=== PATIENT | male | born 1945 | race Caucasian/White ===

== ENCOUNTER 2018-09-23 12:32 | Observation (INO) | payer MEDICARE, BC ==
[2018-09-22 12:41] VITALS: BP 152/100
[2018-09-22 13:06] LABS: BASOPHILS # (AUTO) 0.03 x10^3/uL (0-0.1); BASOPHILS % (AUTO) 1 % (0-1); EOSINOPHILS # (AUTO) 0.11 x10^3/uL (0-0.4); EOSINOPHILS % (AUTO) 2 % (1-7); LYMPHOCYTES # (AUTO) 1.53 x10^3/uL (1-3.4); LYMPHOCYTES % (AUTO) 22 % (22-44); MD NO; MEAN CORPUSCULAR HEMOGLOBIN 33.4 pg (27.5-34.5); MEAN CORPUSCULAR HGB CONC 34.1 g/dL (33.2-36.2); MEAN CORPUSCULAR VOLUME 98.1 fL (81-97); MEAN PLATELET VOLUME 10.6 fL (7.4-10.4); MONOCYTES # (AUTO) 0.53 x10^3/uL (0.2-0.8); MONOCYTES % (AUTO) 8 % (2-9); NEUTROPHILS # (AUTO) 4.63 x10^3/uL (1.8-6.8); NEUTROPHILS % (AUTO) 68 % (42-75); PLATELET COUNT 163 x10^3/uL (130-400); RED CELL DISTRIBUTION WIDTH 14.8 % (9.4-14.8)
[2018-09-22 13:15] LABS: ANION GAP 4 mmol/L (5-15); CALCIUM 9.4 mg/dL (8.5-10.1); CHLORIDE 108 mmol/L (98-107); CREATININE 1.01 mg/dL (0.7-1.3)
[~2018-09-23] VITALS: Ht 182.9 cm; Wt 146.3 kg
[~2018-09-23 12:32] MED LIST: ASPI-614 PO; MULT-658 PO
[2018-09-23] MEDS ORDERED: lutein PO (13:13)
[2018-09-23] MEDS ORDERED: cranberry PO (13:13)
[2018-09-23] MEDS ORDERED: FENTANYL PF 100 MCG/2ML ONE (13:52)
[2018-09-23] MEDS ORDERED: LIDOCAINE 2%, 20ML ONE (13:53)
[2018-09-23] MEDS ORDERED: MIDAZOLAM 1 MG/ML, 5ML ONE (13:53)
[2018-09-23] MEDS ORDERED: VANCOMYCIN 500 MG ONE (13:53)
[2018-09-23] MEDS ORDERED: VANCOMYCIN PMX 1GM/200ML 200 ML ONE (13:53)
[2018-09-23] MEDS ORDERED: SODIUM CHLORIDE 0.9% 1,000 ML IV SCH (14:00)
[2018-09-23] MEDS ORDERED: VANCOMYCIN PMX 1GM/200ML 200 ML IVPB ONE ×2 (14:00→15:30)
[2018-09-23] MEDS ORDERED: HYDROcodone/APAP 5/325 TABLET PO PRN (15:00)
[2018-09-23] MEDS ORDERED: HOLD MEDICATION MC PRN (15:00)
[2018-09-23 16:01] VITALS: BP 145/92
[2018-09-23 20:13] VITALS: BP 152/88
[2018-09-23] MEDS: SODIUM CHLORIDE FLUSH 10ML SYR IVF SCH (21:00)
[2018-09-24 01:00] VITALS: BP 180/128
[2018-09-24 01:05] VITALS: BP_SYST 169; BP_SYST 180; BP_DIAS 122; BP_DIAS 125
[2018-09-24] MEDS ORDERED: VANCOMYCIN PMX 1GM/200ML 200 ML IVPB ONE (02:15)
[2018-09-24 02:44] VITALS: BP 155/89
[2018-09-24 07:37] VITALS: BP 152/94
[2018-09-24] MEDS: SODIUM CHLORIDE FLUSH 10ML SYR IVF SCH (08:14)
[2018-09-24] MEDS ORDERED: ASPIRIN 81 MG TABLET CHEW PO SCH (09:00)
[2018-09-24] MEDS ORDERED: MULTIVITAMIN 1 TABLET PO SCH (09:00)
== END 2018-09-24 10:20 | disposition home or self-care (01) ==
LOC: CACL 12:32 → ORIP 14:59 → 5SO 15:29 → DCLOUNGE 09-24 10:05
PROVIDERS: ADMIT Internal Medicine Cardiovascular Disease; ATTEND Internal Medicine Cardiovascular Disease
DX: I48.1 Persistent atrial fibrillation (principal); R00.1 Bradycardia, unspecified; G47.30 Sleep apnea, unspecified; E78.5 Hyperlipidemia, unspecified; I48.92 Unspecified atrial flutter; I47.1 Supraventricular tachycardia; Z79.82 Long term (current) use of aspirin; Z79.899 Other long term (current) drug therapy
CPT/HCPCS: 33208; 36415; 71045; 71046; 80048; 85025; 93005; 96365; 99156; 99157; C1779; C1785; C1892; G0378; J2250; J3010; J3370; J3490

== ENCOUNTER → 2018-09-28 | Outpatient (CLI) | payer MEDICARE, BC ==
[~2018-09-28] MED LIST changes: +cranberry PO; +lutein PO
== END | disposition home or self-care (01) ==
LOC: CVU 12:12
PROVIDERS: ATTEND Internal Medicine Cardiovascular Disease
DX: I08.3 Combined rheumatic disorders of mitral, aortic and tricuspid valves (principal); Z95.0 Presence of cardiac pacemaker
CPT/HCPCS: 93306

== ENCOUNTER 2019-05-16 02:42 | Inpatient (IN) | payer MEDICARE, BC ==
[~2019-05-16] VITALS: Ht 182.9 cm; Wt 148.2 kg
--- NOTE | 2019-05-16 03:00 | NUR ---
Patient wheeled back in wheelchair with lion hunter. Patient reports history of bronchitis. Patient has a dry nonproductive cough, RN does not appreciate any wheezing but patient's breaths are very diminished. Unable to ausculate from posterior as patient difficulty sitting up without assistance from gurney. Anteriorly auscultation ability reduced by adipose tissue due to patient's morbid obesity. Patient is alert, oriented, answers questions clearly concisely and in full sentences. Skin is warm, pink and dry. Awaiting assessment by provider.
[2019-05-16 03:20] LABS: BASOPHILS # (AUTO) 0.01 x10^3/uL (0-0.1); BASOPHILS % (AUTO) 0 % (0-1); EOSINOPHILS # (AUTO) 0.06 x10^3/uL (0-0.4); EOSINOPHILS % (AUTO) 1 % (1-7); LYMPHOCYTES # (AUTO) 0.29 x10^3/uL (1-3.4); LYMPHOCYTES % (AUTO) 3 % (22-44); MD NO; MEAN CORPUSCULAR HEMOGLOBIN 33.7 pg (27.5-34.5); MEAN CORPUSCULAR HGB CONC 33.7 g/dL (33.2-36.2); MEAN PLATELET VOLUME 10.2 fL (7.4-10.4); MONOCYTES # (AUTO) 0.32 x10^3/uL (0.2-0.8); MONOCYTES % (AUTO) 4 % (2-9); NEUTROPHILS # (AUTO) 8.33 x10^3/uL (1.8-6.8); NEUTROPHILS % (AUTO) 93 % (42-75); PLATELET COUNT 150 x10^3/uL (130-400); RED BLOOD COUNT 4.38 x10^6/uL (4.38-5.82); RED CELL DISTRIBUTION WIDTH 14.5 % (9.4-14.8)
[2019-05-16 03:32] LABS: ALANINE AMINOTRANSFERASE 40 U/L (12-78); ALBUMIN 3.6 g/dL (3.4-5.0); ANION GAP 7 mmol/L (5-15); CALCIUM 8.4 mg/dL (8.5-10.1); CHLORIDE 108 mmol/L (98-107); CREATININE 1.02 mg/dL (0.7-1.3)
[2019-05-16 03:37] LABS: ALKALINE PHOSPHATASE 89 U/L (45-117); BILIRUBIN,TOTAL 1.1 mg/dL (0.2-1.0); TOTAL PROTEIN 7.4 g/dL (6.4-8.2)
[2019-05-16] MEDS ORDERED: HEPARIN 5,000 UNITS/ML, 1ML ONE ×2 (03:59→10:11)
[2019-05-16] MEDS ORDERED: HEPARIN 25,000 UNITS/500ML PMX 500 ML ONE (03:59)
[2019-05-16] MEDS ORDERED: FUROSEMIDE 40 MG/4 ML ONE (03:59)
[2019-05-16] MEDS ORDERED: ASPIRIN 325 MG TABLET ONE (03:59)
[2019-05-16] MEDS ORDERED: FUROSEMIDE 40 MG/4 ML IV ONE (04:00)
[2019-05-16] MEDS ORDERED: HEPARIN 25,000 UNITS/500ML PMX 500 ML IV PRN ×2 (04:00→10:09)
[2019-05-16] MEDS ORDERED: HEPARIN 5,000 UNITS/ML, 1ML IV ONE (04:00)
[2019-05-16] MEDS ORDERED: ASPIRIN 325 MG TABLET PO ONE (04:00)
[2019-05-16] MEDS ORDERED: NITROGLYCERIN OINT 2%, 1GM TP ONE ×2 (04:24→04:30)
[2019-05-16] MEDS ORDERED: ONDANSETRON 2MG/ML, 2ML ONE (04:24)
[2019-05-16] MEDS ORDERED: ONDANSETRON 2MG/ML, 2ML IVPush ONE (04:30)
--- NOTE | 2019-05-16 04:56 | NUR ---
Provider informed of critical troponin (see critical labs flowsheet) Received orders for additional medications. RN to the bedside. Provider to the bedside soon after, educated patient on lab findings, radiology findings and plan of care to include antithrombotics with aspirin (administered immediately) and heparin. Patient also requiring iv diuretics and antinausea medications. (See electronic medicine administration record for details) IV started per protocol and double checked with second RN. Heparin bolus and heparin rate also confirmed with pharmacist Zach. Patient and spouse at bedside agreeable to plan of care. Patient denies chest pain, no diaphoresis and patient's electrocardiogram has been within normal limits. RN then gave report Jerica. Patient transferred into hospital bed for telemetry hold. patient denies further needs.
[2019-05-16] MEDS ORDERED: ACETAMINOPHEN 325 MG TABLET PO PRN (05:30)
[2019-05-16] MEDS ORDERED: ONDANSETRON ODT 4 MG PO PRN (05:30)
[2019-05-16] MEDS ORDERED: OXYcodone IR 5MG TABLET PO PRN (05:30)
[2019-05-16] MEDS ORDERED: hydrALAzine 20 MG/ML, 1ML IVPush PRN (05:30)
[2019-05-16] MEDS ORDERED: POLYETHYLENE GLYCOL 17 GM PACKET PO PRN (05:30)
[2019-05-16] MEDS ORDERED: BISACODYL 10 MG SUPP PR PRN (05:30)
[2019-05-16] MEDS ORDERED: DOCUSATE 100 MG CAPSULE PO PRN (05:30)
[2019-05-16] MEDS ORDERED: PROMETHAZINE 25 MG/ML, 1ML IM PRN (05:30)
[2019-05-16] MEDS ORDERED: morphine SULFATE 10 MG/ML, 1ML IVPush PRN (05:30)
[2019-05-16] MEDS ORDERED: ONDANSETRON 2MG/ML, 2ML IVPush PRN (05:30)
[2019-05-16] MEDS ORDERED: NITROGLYCERIN 0.4 MG BOTTLE (25 TABS) SL PRN ×2 (06:00→16:30)
[2019-05-16 06:18] LABS: FREE T4 (FREE THYROXINE) 0.87 ng/dL (0.76-1.46)
[2019-05-16] MEDS ORDERED: PANTOPRAZOLE 40 MG IV ONE (06:43)
[2019-05-16] MEDS: PANTOPRAZOLE 40 MG IV IVPush SCH ×2 (06:47→17:38)
--- NOTE | 2019-05-16 07:10 | NUR ---
Received bedside report from Iva Krishna RN. All questions answered. Assuming care of pt at this time. Pt resting on hospital bed with PIV fluids and mediations infusing per EMAR. Pt's at bedside. Pt denies SOB at this time with or without exertion. NADN. No other needs expressed at this time. Pt aware of NPO status at this time.
[2019-05-16] MEDS ORDERED: AMLODIPINE 5 MG TABLET ONE (08:15)
[2019-05-16] MEDS ORDERED: ACETAMINOPHEN 325 MG TABLET ONE (08:26)
--- NOTE | 2019-05-16 08:35 | NUR ---
Obtained morning vital signs per unit protocol per Admit MD order. Printed cardiac rhythm documentation and attached to pt's paper chart. Performed and charted physical assessment. Provided pt medication per EMAR and VS and per EMAR. PIV medication infusing per EMAR. Pending next labs. Provided pt IS and education with teach back method. Pt stated verbal understanding and showed demonstration of IS use. NADN. No needs expressed at this time. Call light within reach. Bedrails up x 3. Urinal provided at bedside. Pt denies pain at this time.
[2019-05-16] MEDS ORDERED: AMLODIPINE 5 MG TABLET PO SCH (09:00)
[2019-05-16] MEDS ORDERED: ATOR80TA PO (09:12)
[2019-05-16] MEDS ORDERED: ASPI-650 PO (09:12)
--- NOTE | 2019-05-16 10:28 | NUR ---
LATE NOTE ENTRY DUE TO PT CARE FOR 1007: Called pharmacy and verified heparin protocol for pt. Per pharmacy pt's adjusted dose weight is 107 kg. Per pt's Anti-Xa at 0900, and per protocol and verification with pharmacy and FABIOLA Reynolds, rebolused pt with 4,000 Units of heparin and increased gtt rate from 1,000 units/hour to 1,200 units/hour. NADN. No needs expressed at this time.
[2019-05-16] MEDS ORDERED: ASPI-614 PO (10:36)
[2019-05-16] MEDS ORDERED: Lutein (10:36)
[2019-05-16] MEDS ORDERED: Cranberry (10:36)
[2019-05-16] MEDS ORDERED: multivitamin (10:36)
--- NOTE | 2019-05-16 11:02 | NUR ---
BREAK RN: DR CONTI TO BEDSIDE FROM CARDIOLOGY. PLAN IS FOR AN ECHO TODAY AND CATH TOMORROW. FAMILY AT BEDSIDE. MD ADDRESSED ALL PT AND FAMILY QUESTIONS AT THIS TIME. CALL LIGHT WITHIN REACH. WILL CONTINUE TO MONITOR.
--- NOTE | 2019-05-16 13:55 | NUR ---
Pt resting with eyes closed on hospital bed. Pt has unlabored respirations with even chest rise and fall. NADN. No needs expressed. Spouse at bedside. Bedrails up x 3, call light and urinal within reach.
--- NOTE | 2019-05-16 15:11 | NUR ---
Provided report to JENNIFER Resendiz. All questions answered. Pt ready to transfer from ED to floor. NADN. No needs expressed.
[2019-05-16 15:46] VITALS: BP 123/76
--- NOTE | 2019-05-16 15:50 | NUR ---
Pt transfered to floor from ED and left with all personal belongings. NADN. No needs expressed.
[2019-05-16] MEDS: HEPARIN 5,000 UNITS/ML, 1ML IV PRN ×2 (16:36→23:28)
[2019-05-16] MEDS: METOPROLOL TARTRATE 25 MG TAB PO SCH (17:38)
[2019-05-16] MEDS: FUROSEMIDE 20 MG/2 ML IV SCH (17:38)
[2019-05-16 19:29] VITALS: BP 100/66
[2019-05-16] MEDS: ATORVASTATIN 40 MG TABLET PO SCH (19:58)
[2019-05-17 01:23] VITALS: BP 125/82
[2019-05-17 05:56] VITALS: BP 110/67
[2019-05-17] MEDS: ASPIRIN 81 MG TABLET EC PO SCH (05:57)
[2019-05-17] MEDS: METOPROLOL TARTRATE 25 MG TAB PO SCH ×2 (05:57→16:46)
[2019-05-17] MEDS: PANTOPRAZOLE 40 MG IV IVPush SCH ×2 (05:57→16:46)
[2019-05-17] MEDS ORDERED: ASPIRIN 325 MG TABLET EC PO SCH (06:00)
[2019-05-17 06:22] LABS: BASOPHILS # (AUTO) 0.01 x10^3/uL (0-0.1); BASOPHILS % (AUTO) 0 % (0-1); EOSINOPHILS # (AUTO) 0.11 x10^3/uL (0-0.4); EOSINOPHILS % (AUTO) 2 % (1-7); LYMPHOCYTES # (AUTO) 1.05 x10^3/uL (1-3.4); LYMPHOCYTES % (AUTO) 23 % (22-44); MD NO; MEAN CORPUSCULAR HEMOGLOBIN 33.8 pg (27.5-34.5); MEAN CORPUSCULAR HGB CONC 33.6 g/dL (33.2-36.2); MEAN CORPUSCULAR VOLUME 100.7 fL (81-97); MEAN PLATELET VOLUME 9.9 fL (7.4-10.4); MONOCYTES # (AUTO) 0.48 x10^3/uL (0.2-0.8); MONOCYTES % (AUTO) 11 % (2-9); NEUTROPHILS # (AUTO) 2.96 x10^3/uL (1.8-6.8); NEUTROPHILS % (AUTO) 64 % (42-75); PLATELET COUNT 137 x10^3/uL (130-400); RED BLOOD COUNT 4.34 x10^6/uL (4.38-5.82); RED CELL DISTRIBUTION WIDTH 14.5 % (9.4-14.8)
[2019-05-17 06:23] LABS: INTERNATIONAL NORMALIZED RATIO 1.22 (0.93-1.1); PROTHROMBIN TIME 12.7 Seconds (9.6-11.5)
[2019-05-17 06:27] LABS: ALANINE AMINOTRANSFERASE 41 U/L (12-78); ALBUMIN 3.3 g/dL (3.4-5.0); ANION GAP 3 mmol/L (5-15); CALCIUM 8.9 mg/dL (8.5-10.1); CHLORIDE 104 mmol/L (98-107); CREATININE 0.93 mg/dL (0.7-1.3)
[2019-05-17 06:30] LABS: ALKALINE PHOSPHATASE 80 U/L (45-117); BILIRUBIN,TOTAL 0.9 mg/dL (0.2-1.0); CHOL/HDL RATIO 4.7; CHOLESTEROL, TOTAL 156 mg/dL (140-239); HDL CHOL % 21 % (26-37); HDL CHOLESTEROL (DIRECT) 33 mg/dL (40-60); LDL CHOLESTEROL,CALCULATED 109 mg/dL (54-169); LDL/HDL RATIO 3.3 (0.5-3.0); TRIGLYCERIDES 68 mg/dL (50-200); VLDL CHOLESTEROL 14 mg/dL (0-25)
[2019-05-17] MEDS: HEPARIN 5,000 UNITS/ML, 1ML IV PRN (06:32)
[2019-05-17 07:48] VITALS: BP 128/87
[2019-05-17] MEDS: FUROSEMIDE 20 MG/2 ML IV SCH ×2 (07:48→16:46)
[2019-05-17] MEDS: POTASSIUM CHLORIDE 20 MEQ TAB.ER.PRT PO SCH (07:48)
[2019-05-17 13:46] VITALS: BP 123/77
[2019-05-17] MEDS ORDERED: FENTANYL PF 100 MCG/2ML ONE (14:27)
[2019-05-17] MEDS ORDERED: TICAGRELOR 90 MG TABLET ONE (14:27)
[2019-05-17] MEDS ORDERED: MIDAZOLAM 1 MG/ML, 5ML ONE (14:27)
[2019-05-17] MEDS ORDERED: VERAPAMIL 2.5 MG/ML, 2ML ONE (14:28)
[2019-05-17] MEDS ORDERED: BIVALIRUDIN 250 MG ONE (14:28)
[2019-05-17] MEDS ORDERED: LIDOCAINE-MPF 1%, 5ML ONE (14:28)
[2019-05-17] MEDS ORDERED: HEPARIN 1,000 UNITS/ML, 10ML ONE (14:28)
[2019-05-17 19:26] VITALS: BP 102/65
[2019-05-17] MEDS: ATORVASTATIN 40 MG TABLET PO SCH (20:04)
[2019-05-18 01:26] VITALS: BP 124/81
[2019-05-18 05:48] LABS: BASOPHILS # (AUTO) 0.01 x10^3/uL (0-0.1); BASOPHILS % (AUTO) 0 % (0-1); EOSINOPHILS # (AUTO) 0.16 x10^3/uL (0-0.4); EOSINOPHILS % (AUTO) 3 % (1-7); LYMPHOCYTES # (AUTO) 0.94 x10^3/uL (1-3.4); LYMPHOCYTES % (AUTO) 18 % (22-44); MD NO; MEAN CORPUSCULAR HEMOGLOBIN 33.8 pg (27.5-34.5); MEAN CORPUSCULAR HGB CONC 33.6 g/dL (33.2-36.2); MEAN CORPUSCULAR VOLUME 100.5 fL (81-97); MEAN PLATELET VOLUME 10.4 fL (7.4-10.4); MONOCYTES # (AUTO) 0.45 x10^3/uL (0.2-0.8); MONOCYTES % (AUTO) 8 % (2-9); NEUTROPHILS # (AUTO) 3.82 x10^3/uL (1.8-6.8); NEUTROPHILS % (AUTO) 71 % (42-75); PLATELET COUNT 148 x10^3/uL (130-400); RED BLOOD COUNT 4.54 x10^6/uL (4.38-5.82); RED CELL DISTRIBUTION WIDTH 14.3 % (9.4-14.8)
[2019-05-18 06:02] LABS: ANION GAP 7 mmol/L (5-15); CALCIUM 8.9 mg/dL (8.5-10.1); CHLORIDE 104 mmol/L (98-107); CREATININE 0.96 mg/dL (0.7-1.3)
[2019-05-18 06:05] VITALS: BP 147/83
[2019-05-18] MEDS: METOPROLOL TARTRATE 25 MG TAB PO SCH (06:06)
[2019-05-18] MEDS: PANTOPRAZOLE 40 MG IV IVPush SCH (06:06)
[2019-05-18] MEDS: ASPIRIN 81 MG TABLET EC PO SCH (06:06)
[2019-05-18] MEDS: FUROSEMIDE 20 MG/2 ML IV SCH (06:30)
[2019-05-18] MEDS: POTASSIUM CHLORIDE 20 MEQ TAB.ER.PRT PO SCH (07:36)
[2019-05-18 07:57] VITALS: BP 149/80
[2019-05-18] MEDS ORDERED: ATOR40TA78 PO ×2 (15:33)
[2019-05-18] MEDS ORDERED: ONDA4TAB13 PO ×2 (15:33)
[2019-05-18] MEDS ORDERED: METO25TA35 PO ×2 (15:33)
[2019-05-18] MEDS ORDERED: POLY17PO5 PO ×2 (15:33)
[2019-05-18] MEDS ORDERED: POTA20PA25 PO ×2 (15:33)
[2019-05-18] MEDS ORDERED: PANT40TA3 PO (15:33)
[2019-05-18] MEDS ORDERED: FURO-92 PO ×2 (15:33)
[2019-06-21] MEDS ORDERED: ATOR40TA78 PO (12:29)
[2019-06-21] MEDS ORDERED: CLOP75TA PO (12:29)
[2019-06-21] MEDS ORDERED: FURO-92 PO (12:29)
[2019-06-21] MEDS ORDERED: ACET325T26 PO (12:29)
[2019-06-21] MEDS ORDERED: POTA20PA25 PO (12:29)
[2019-06-21] MEDS ORDERED: METO25TA35 PO (12:29)
== END 2019-05-18 17:02 | disposition home or self-care (01) | DRG 280 ==
LOC: ED 04:20 → EDIP 04:40 → 5SO 15:28 → DCLOUNGE 05-18 16:40
PROVIDERS: ADMIT Internal Medicine; ATTEND Internal Medicine
PROC: 4A023N7 Measurement of Cardiac Sampling and Pressure, Left Heart, Percutaneous Approach (ICD-10-PCS; principal; 2019-05-17)
PROC: B2111ZZ Fluoroscopy of Multiple Coronary Arteries using Low Osmolar Contrast (ICD-10-PCS; 2019-05-17)
PROC: B2151ZZ Fluoroscopy of Left Heart using Low Osmolar Contrast (ICD-10-PCS; 2019-05-17)
DX: I21.4 Non-ST elevation (NSTEMI) myocardial infarction (principal); I50.33 Acute on chronic diastolic (congestive) heart failure; I42.9 Cardiomyopathy, unspecified; I48.20 Chronic atrial fibrillation, unspecified; Z68.41 Body mass index [BMI] 40.0-44.9, adult; E46 Unspecified protein-calorie malnutrition; D68.69 Other thrombophilia; I16.0 Hypertensive urgency; I35.0 Nonrheumatic aortic (valve) stenosis; K52.9 Noninfective gastroenteritis and colitis, unspecified; E66.01 Morbid (severe) obesity due to excess calories; Z71.3 Dietary counseling and surveillance; I25.10 Atherosclerotic heart disease of native coronary artery without angina pectoris; I27.20 Pulmonary hypertension, unspecified; Z88.0 Allergy status to penicillin; Z88.2 Allergy status to sulfonamides; E78.5 Hyperlipidemia, unspecified; I49.5 Sick sinus syndrome; K21.9 Gastro-esophageal reflux disease without esophagitis; Z87.891 Personal history of nicotine dependence; Z95.0 Presence of cardiac pacemaker
CPT/HCPCS: 36415; 71046; 74021; 80048; 80053; 80061; 83036; 83690; 83735; 83880; 84100; 84439; 84443; 84484; 85025; 85520; 85610; 93005; 93458; 99156; 99291; C1769; C1894; C8929; G0378; J0583; J1644; J1940; J2250; J2405; J3010; Q9957; C9113; Q9967

== ENCOUNTER 2019-05-19 19:30 | Emergency (ER) | payer MEDICARE, BC ==
[~2019-05-19] VITALS: Ht 182.9 cm; Wt 148.1 kg
[~2019-05-19 19:30] MED LIST changes: +ASPI-650 PO; +ATOR40TA78 PO; +ATOR80TA PO; +Cranberry; +FURO-92 PO; +Lutein; +METO25TA35 PO; +ONDA4TAB13 PO; +PANT40TA3 PO; +POLY17PO5 PO; +POTA20PA25 PO; +multivitamin
[2019-05-19 19:36] VITALS: BP 140/81
[2019-05-19] MEDS ORDERED: DIPHENHYDRAMINE 50 MG CAPSULE ONE (19:54)
[2019-05-19] MEDS ORDERED: DEXAMETHASONE 4 MG TABLET ONE (19:54)
[2019-05-19] MEDS ORDERED: FAMOTIDINE 20 MG TABLET ONE (19:55)
[2019-05-19] MEDS ORDERED: DIPHENHYDRAMINE 25 MG CAPSULE PO ONE (20:00)
[2019-05-19] MEDS ORDERED: FAMOTIDINE 20 MG TABLET PO ONE (20:00)
[2019-05-19] MEDS ORDERED: DEXAMETHASONE 4 MG TABLET PO ONE (20:00)
== END 2019-05-19 20:15 | disposition home or self-care (01) ==
LOC: ED 20:10
DX: L50.9 Urticaria, unspecified (principal); R21 Rash and other nonspecific skin eruption; I50.9 Heart failure, unspecified; I25.2 Old myocardial infarction; Z87.891 Personal history of nicotine dependence
CPT/HCPCS: 99284; Q0163

== ENCOUNTER → 2019-06-01 | Outpatient (CLI) | payer MEDICARE, BC ==
[~2019-06-01] MED LIST changes: +VISIPAQUE 320 MG/ML, 150ML BOTTLE ONE
== END | disposition home or self-care (01) ==
LOC: CVU 08:41
PROVIDERS: ATTEND Internal Medicine Cardiovascular Disease
DX: K57.30 Diverticulosis of large intestine without perforation or abscess without bleeding (principal); K40.90 Unilateral inguinal hernia, without obstruction or gangrene, not specified as recurrent; I48.91 Unspecified atrial fibrillation; I35.0 Nonrheumatic aortic (valve) stenosis; I65.23 Occlusion and stenosis of bilateral carotid arteries; Z95.0 Presence of cardiac pacemaker
CPT/HCPCS: 71275; 74174; 93880; 94060; 94726; 94729; Q9967

== ENCOUNTER → 2019-07-14 | Outpatient (CLI) | payer MEDICARE, BC ==
[~2019-07-14] MED LIST changes: +ACET325T26 PO; +CLOP75TA PO; -VISIPAQUE 320 MG/ML, 150ML BOTTLE ONE
== END | disposition home or self-care (01) ==
LOC: CVU 09:40
PROVIDERS: ATTEND Internal Medicine Cardiovascular Disease
DX: I11.9 Hypertensive heart disease without heart failure (principal); I48.91 Unspecified atrial fibrillation
CPT/HCPCS: 93306

== ENCOUNTER 2020-01-18 09:39 | Outpatient (CLI) | payer MEDICARE, BC | END 2020-01-18 23:59 | disposition home or self-care (01) | LOC: CVU 09:39 | PROVIDERS: ATTEND Physician Assistant Medical | DX: I08.1 Rheumatic disorders of both mitral and tricuspid valves (principal); I47.2 Ventricular tachycardia; I48.91 Unspecified atrial fibrillation; I10 Essential (primary) hypertension; Z95.0 Presence of cardiac pacemaker | CPT/HCPCS: C8929; Q9957 ==

== ENCOUNTER → 2020-06-10 | Outpatient (CLI) | payer MEDICARE, BC ==
[~2020-06-10] MED LIST changes: +ASPI-1026 PO; -ASPI-650 PO
== END | disposition home or self-care (01) ==
LOC: CVU 08:45
PROVIDERS: ATTEND Internal Medicine Cardiovascular Disease
DX: I08.1 Rheumatic disorders of both mitral and tricuspid valves (principal); I11.9 Hypertensive heart disease without heart failure; I48.0 Paroxysmal atrial fibrillation
CPT/HCPCS: 93306